=== PATIENT | male | born 1945 | race Caucasian/White ===

== ENCOUNTER 2016-12-28 12:53 | Emergency (ER) | payer MEDICARE, MEDICAID ==
[2016-12-28] MEDS ORDERED: SODIUM CHLORIDE FLUSH 10ML SYR IVF ONE (14:00)
[2016-12-28] MEDS ORDERED: PLEASE ENTER HEIGHT AND WEIGHT MC SCH (14:00)
[2016-12-28 14:16] LABS: HEMATOCRIT 45.6 % (39.2-51.8); HEMOGLOBIN 15.4 g/dL (13.7-18.0); WHITE BLOOD COUNT 5.7 x10^3/uL (3.4-10)
[2016-12-28 14:29] LABS: ASPARTATE AMINO TRANSFERASE 10 U/L (15-37); BLOOD UREA NITROGEN 6 mg/dL (7-18)
[2016-12-28 14:34] LABS: IS PT STATUS REG ER OR PRE ER? YES
[2016-12-28 15:34] VITALS: BP 115/64
== END 2016-12-28 15:35 | disposition home or self-care (01) ==
LOC: ED 13:27
DX: R20.2 Paresthesia of skin (principal); R53.1 Weakness; J44.9 Chronic obstructive pulmonary disease, unspecified; I25.2 Old myocardial infarction; I25.10 Atherosclerotic heart disease of native coronary artery without angina pectoris; I11.9 Hypertensive heart disease without heart failure
CPT/HCPCS: 36415; 70450; 80053; 81003; 83605; 84484; 85025; 93005; 99285

== ENCOUNTER 2017-01-14 08:39 | Emergency (ER) | payer MEDICARE, MEDICAID ==
[~2017-01-14] VITALS: Ht 167.6 cm; Wt 72.3 kg
[2017-01-14] MEDS ORDERED: OXYcodone/APAP 5/325MG TABLET PO ONE (10:00)
[2017-01-14] MEDS ORDERED: DIAZEPAM 5 MG TABLET PO ONE (10:00)
[2017-01-14] MEDS ORDERED: DIAZEPAM 5 MG TABLET ONE (10:12)
[2017-01-14] MEDS ORDERED: OXYcodone/APAP 5/325MG TABLET ONE (10:12)
[2017-01-14 12:06] VITALS: BP 134/72
== END 2017-01-14 12:07 | disposition home or self-care (01) ==
LOC: ED 10:53
DX: S16.1XXA Strain of muscle, fascia and tendon at neck level, initial encounter (principal); I11.9 Hypertensive heart disease without heart failure; J44.9 Chronic obstructive pulmonary disease, unspecified; I25.10 Atherosclerotic heart disease of native coronary artery without angina pectoris; I25.2 Old myocardial infarction; X50.9XXA Other and unspecified overexertion or strenuous movements or postures, initial encounter; Y93.89 Activity, other specified; Y92.89 Other specified places as the place of occurrence of the external cause; Y99.9 Unspecified external cause status
CPT/HCPCS: 72050; 99284

== ENCOUNTER 2017-03-25 01:31 | Emergency (ER) | payer MEDICARE, MEDICAID ==
[~2017-03-25] VITALS: Ht 167.6 cm; Wt 70.0 kg
[2017-03-25] MEDS ORDERED: LIDOCAINE 1%, 10ML INFIL ONE (02:00)
[2017-03-25] MEDS ORDERED: DIPH,PERTUSS(ACELL),TET VAC/PF 0.5 ML IM-VACC ONE (02:00)
[2017-03-25 03:27] VITALS: BP 121/87
== END 2017-03-25 04:14 | disposition home or self-care (01) ==
LOC: ED 04:08
DX: S06.0X0A Concussion without loss of consciousness, initial encounter (principal); S01.81XA Laceration without foreign body of other part of head, initial encounter; F10.120 Alcohol abuse with intoxication, uncomplicated; I25.10 Atherosclerotic heart disease of native coronary artery without angina pectoris; I10 Essential (primary) hypertension; J44.9 Chronic obstructive pulmonary disease, unspecified; W01.0XXA Fall on same level from slipping, tripping and stumbling without subsequent striking against object, initial encounter; Y93.01 Activity, walking, marching and hiking; Y92.480 Sidewalk as the place of occurrence of the external cause; Y99.8 Other external cause status
CPT/HCPCS: 12014; 70450; 72125

== ENCOUNTER 2018-01-06 22:18 | Emergency (ER) | payer MEDICARE, MEDICAID ==
[~2018-01-06] VITALS: Ht 167.6 cm; Wt 82.0 kg
[2018-01-06] MEDS ORDERED: NITR0.6T4 SL (22:29)
[2018-01-06 23:35] LABS: BASOPHILS # (AUTO) 0.06 x10^3/uL (0-0.1); BASOPHILS % (AUTO) 1 % (0-1); EOSINOPHILS # (AUTO) 0.23 x10^3/uL (0-0.4); EOSINOPHILS % (AUTO) 4 % (1-7); LYMPHOCYTES # (AUTO) 3.27 x10^3/uL (1-3.4); LYMPHOCYTES % (AUTO) 49 % (22-44); MD NO; MEAN CORPUSCULAR HEMOGLOBIN 32.2 pg (27.5-34.5); MEAN CORPUSCULAR VOLUME 94.7 fL (81-97); MEAN PLATELET VOLUME 7.9 fL (7.4-10.4); MONOCYTES % (AUTO) 5 % (2-9); NEUTROPHILS # (AUTO) 2.86 x10^3/uL (1.8-6.8); NEUTROPHILS % (AUTO) 43 % (42-75); PLATELET COUNT 271 x10^3/uL (130-400); RED BLOOD COUNT 4.76 x10^6/uL (4.38-5.82); RED CELL DISTRIBUTION WIDTH 14.2 % (9.4-14.8)
[2018-01-06 23:47] LABS: ALBUMIN 3.6 g/dL (3.4-5.0); ANION GAP 7 mmol/L (5-15); CHLORIDE 112 mmol/L (98-107); CREATININE 0.63 mg/dL (0.7-1.3)
[2018-01-06 23:51] LABS: TROPONIN I < 0.015 ng/mL (0.000-0.045)
[2018-01-07] MEDS ORDERED: SODIUM CHLORIDE 0.9% 1,000ML IVBOLUS ONE (03:30)
[2018-01-07] MEDS ORDERED: SODIUM CHLORIDE FLUSH 10ML SYR IVF ONE (03:30)
[2018-01-07 04:07] VITALS: BP 90/50
== END 2018-01-07 04:23 | disposition home or self-care (01) ==
LOC: ED 23:59
DX: F10.120 Alcohol abuse with intoxication, uncomplicated (principal); R07.2 Precordial pain; I10 Essential (primary) hypertension; J44.9 Chronic obstructive pulmonary disease, unspecified; I25.2 Old myocardial infarction; I25.10 Atherosclerotic heart disease of native coronary artery without angina pectoris
CPT/HCPCS: 36415; 71045; 80048; 80307; 82040; 84484; 85025; 93005; 99285; J7030